=== PATIENT | female | born 2005 | race Hispanic/Latino ===

== ENCOUNTER 2024-08-01 17:36 | Emergency (ER) | payer SELFPAY ==
[~2024-08-01] VITALS: Ht 147.3 cm; Wt 69.0 kg
[2024-08-01 17:40] VITALS: PULSE 107; RESP 16; TEMP 97.4
[2024-08-01 18:26] VITALS: BP 135/91; PULSE 103; RESP 16; O2SAT 98
== END 2024-08-01 18:26 | disposition home or self-care (01) ==
LOC: FSED 17:43
DX: R05.9 Cough, unspecified (principal); J10.1 Influenza due to other identified influenza virus with other respiratory manifestations; R51.9 Headache, unspecified; R42 Dizziness and giddiness; Z11.52 Encounter for screening for COVID-19
CPT/HCPCS: 0223U; 83518; 87400; 99284